=== PATIENT | male | born 1955 | race Hispanic/Latino ===

== ENCOUNTER 2019-12-04 07:40 | Observation (INO) | payer OTHER, SELFPAY ==
[2019-12-04] VITALS (14 sets, daily range): BP systolic 101–149; BP diastolic 64–94; PULSE 58–96; RESP 14–18; TEMP 36.3–37.1; O2SAT 92–96; BMI 26.1; BMI 25.3; BMI 25.4
--- NOTE | 2019-12-04 | KID_PTH ---
PATIENT: MAGDA GONGORA LOC: MS3 U#:[id number] AGE/SX: 64/M ROOM: [facility] RE12/04/[address]: Dr. Bharat Garcia MD : [id number] BED: 1 DIS: 12/05/2019 SPEC #: [id number] RECD: 12/04/19 11:45 STATUS: KEVIN DAVALOS #: [id number] NOLAN: 12/04/19 00:[address]: Bharat Garcia DEPT: SURGICAL PATHOLOGY RECD BY: Jose E Durant ENTERED: 12/05/19 10:57 SP TYPE: KIDNEY OTHR DR: No Primary Care Phys Tissues: Kidney, NOS Procedures: Surgery Specimen Level V HEADER OPERATION: Laparoscopic robotic left partial nephrectomy PRE-OP DIAGNOSIS: Left renal mass TISSUE SUBMITTED: Left renal mass MICROSCOPIC DIAGNOSIS Left renal mass, partial nephrectomy: Clear cell renal cell carcinoma, with extensive cystic changes. See cancer summary in the comment section. SJ:marilin 12/06/19 COMMENT KIDNEY CANCER SUMMARY Procedure - partial nephrectomy Specimen laterality - left Tumor site - not specified Tumor size - 3.5 x 3 x 2.2 cm Tumor focality - unifocal Histologic type - clear cell renal cell carcinoma with extensive cystic changes. Sarcomatoid features - not identified Rhabdoid features - not identified Histologic grade (WHO/ISUP) - grade 1 Tumor necrosis - not identified Tumor extension - tumor limited to kidney Margins - uninvolved by invasive carcinoma. Lymphvascular invasion - not identified Regional lymph nodes - no lymph nodes submitted or found. Non-neoplastic kidney - no pathologic change (only a thin rim of unremarkable renal parenchymal tissue is noted). PATHOLOGIC STAGE: pT1a pNx Mx The above summary is in compliance with [employer] [place] (CAP) Cancer Protocols Checklist and [place] [employer] Committee on Cancer (AJCC), Staging Manual, 8th Ed. Case has been reviewed in consultation with Dr. Davis who concurs with the above diagnosis. IDC:AM MICROSCOPIC DESCRIPTION Slides are reviewed. GROSS DESCRIPTION Received in fixative is one container labeled with the patient's name and designated left renal mass. The specimen consists of three irregular fragments of yellow fatty tissue ranging in size from 2 to 8 cm in greatest dimension. The largest fragment contains an ovoid, martin-desir, partially cystic nodule measuring 3.5 x 3.3 x 2.2 cm. This largest fragment with cystic lesion is differentially inked as follows: fatty surface furthest away from lesion - blue and opposite surface - black. The sections of cystic lesion reveal necrotic martin-yellow cut surfaces. The lesion appears to be circumscribed. Two fragments of fatty tissue in the container are grossly unremarkable and do not contain mass lesions. The lesion is sectioned and totally submitted cassettes 1-8. The smaller fragments separate in the container are sectioned and totally submitted in cassettes 9-11. / AM:marilin 12/05/19 TC:0 CPT: 15526
--- NOTE | 2019-12-04 05:47 | EKG12_ITS ---
Test Reason : PRE OP Blood Pressure : / mmHG Vent. Rate : 062 BPM Atrial Rate : 062 BPM P-R Int : 222 ms QRS Dur : 102 ms QT Int : 370 ms P-R-T Axes : 020 058 042 degrees QTc Int : 375 ms Sinus rhythm with 1st degree A-V block Otherwise normal ECG No previous ECGs available Confirmed by SHAR LOZANO, HANNAH ([id number]), metropolitan editor NILO DIAZ ([id number]) on 12/09/2019 3:40:45 PM Referred By: Bharat Garcia Confirmed By:HANNAH MYLES MD
[2019-12-04] MEDS: Lactated Ringers 1,000 ML 100 ML IV ×2 (06:17→06:18)
[2019-12-04 06:27] LABS: Hematocrit 48.1 % (40-54); Hemoglobin 16.3 g/dL (13.0-16.5); Mean Corp Hgb Conc 33.9 g/dL (32-36); Mean Corpuscular Hgb 31.1 pg (27.0-32.0); Mean Corpuscular Volume 91.8 fL (80-94); Mean Platelet Vol. 9.9 fl (6.2-12.0); Platelet Count 203 K/mm3 (150-450); RBC Distribution Width SD 40.7 fl (35.1-43.9); Red Blood Count 5.24 M/mm3 (4.6-6.2); White Blood Count 9.3 K/mm3 (4.4-11.0)
[2019-12-04 06:45] LABS: Anion Gap 6 (5-15); BUN 12 mg/dL (7-18); Calcium,Total 9.6 mg/dL (8.5-10.1); Chloride 109 mmol/L (98-107); EST Glomerular Filtration Rate 104 mL/min (>60); Est Glom Filt Rate - Afr Amer 126 mL/min (>60); Estimated Creatinine Clearance 95.74 ml/min; Glucose 112 mg/dL (74-106); Potassium 4.1 mmol/L (3.5-5.1); Sodium Level 139 mmol/L (136-145)
[2019-12-04] MEDS: Cefazolin 2 GM in 0.9% Normal Saline 100 ML IV (07:39)
--- NOTE | 2019-12-04 07:44 | PCM.HP.STD ---
Problem List (1) Left renal mass Status: Acute History of Present Illness Date of Admission: 12/04/19 Chief Complaint: Left renal mass enhancing The patient is a 64 year old male with a complex enhancing left renal mass, we discussed the potential for malignancy we can proceed with a laparoscopic robotic assisted left partial nephrectomy. Past Medical History Allergies No Known Allergies Allergy (Verified 12/04/19 06:08) Home Medications: Ambulatory Orders Medication Instructions Recorded Metoprolol Tartrate [Lopressor 25 mg PO BID 12/02/19 (Beta Naveed)] Smoking Status: Former smoker Tobacco Use: Non-smoker Review of Systems Constitutional: Denies: Chills, Fever, Weight Change HEENT: Denies: Head Aches, Sinus Congestion, Sinus Drainage Cardiovascular: Denies: Chest Pain, Palpitations Respiratory: Denies: Cough, Shortness of breath at rest, Sputum production Gastrointestinal: Denies: Abdominal Pain, Nausea, Vomiting Genitourinary: Denies: Dysuria Musculoskeletal: Denies: Joint Pain, Joint Tenderness Skin: Denies: Rash, Wounds Neurological: Denies: Numbness, Tingling, Focal weakness Psychiatric: Denies: Anxiety, Depression, Homicidal Ideations, Suicidal Ideations Hematologic/ Lymphatic: Denies: Easy Bruising, Easy Bleeding VTE Information - Inpt Only VTE Present on Admission: No VTE Mechan Device Prophylaxis: SCD's Patient Problems: Active and Suspected Problems Left renal mass (Acute) - Physical Exam Vitals/I&O's: Vital Signs Temp Pulse Resp BP Pulse Ox 98.5 F 68 16 149/94 H 96 12/04/19 06:11 12/04/19 06:11 12/04/19 06:11 12/04/19 06:11 12/04/19 06:11 Oxygen Delivery Method Room Air Weight: 80.2 kg Body Mass Index (BMI) 26.1 General: Alert, Oriented x3, Cooperative HEENT: Atraumatic, PERRLA, EOMI, Normocephalic Neck: Supple, No JVD, Negative Carotid Bruits Lungs: Clear to auscultation, Normal air movement Cardiovascular: Regular rate, No murmurs Abdomen: Bowel Sounds Present, Soft, Non Tender Extremities: No edema, Capillary Refill Less than 3 Seconds Skin: No rashes, No breakdown Musculoskeletal: No Tenderness to Palpation of Joints or Extremities Neurological: Cranial nerves II-XII grossly intact Psych/Mental Status: Normal Affect, Appropriate Laboratory Results 12/04/19 06:16: WBC 9.3, RBC 5.24, Hgb 16.3, Hct 48.1, MCV 91.8, MCH 31.1, MCHC 33.9, RDW Std Deviation 40.7, RDW Coeff of Jostin 12.0, Plt Count 203, MPV 9.9 12/04/19 06:16: Sodium 139, Potassium 4.1, Chloride 109 H, Carbon Dioxide 24.0, Anion Gap 6, BUN 12, Creatinine 0.80, Estim Creat Clear Calc 95.74, Est GFR (MDRD) Af Amer 126, Est GFR (MDRD) Non-Af 104, BUN/Creatinine Ratio 15.0, Glucose 112 H, Calcium 9.6 12/04/19 06:16: Blood Type Pending, Antibody Screen Pending, Crossmatch See Detail Current Medications Lactated Ringer's () 1,000 mls @ 100 mls/hr IV .Q10H REPLACED BY [facility] Last Admin: 12/04/19 06:17 Dose: 100 mls/hr Documented by: Lactated Ringer's () 1,000 mls @ 100 mls/hr IV .Q10H REPLACED BY [facility] Last Admin: 12/04/19 06:18 Dose: 100 mls/hr Documented by: Assessment/Plan All Active Problems Left renal mass (Acute) Plan to proceed with a left laparoscopic robotic partial nephrectomy, we discussed the risk of malignancy. Essential Procedure Criteria Procedure Essential: Yes Criteria Note: On 10/22/2019 the [facility] ([facility]) Public Order signed by [facility] Director Ashley Stapleton M.D., regarding the Management of Non-Essential Surgeries and Procedures for the purpose of preserving Personal Protective Equipment (PPE) and critical hospital capacity and resources within [place] went into effect as of 10/23/2019 at 5:00PM. According to the [facility] Public Order: This action will remain in full force and effect until the State of Emergency declared by the Governor no longer exists or the Director of the [facility] rescinds or modifies this Order.. This [facility] order stated all non-essential or elective surgeries and procedures that utilize PPE should be delayed unless there is undue risk to the current or future health of a patient. After reviewing the aforementioned [facility] Public Order and the patients clinical case, I have determined that the scheduled procedure meets the criteria to go forward. Risk to Patient if Procedure Delayed: Risk of metastasis or progression of staging if delayed
--- NOTE | 2019-12-04 07:48 | PCM.DC.URO ---
Discharge Diet: No Restrictions, Light diet - advance as tolerated Discharge Activity: Return to Normal Activity, May Not Drive - for 2 days., May not drive while taking narcotic pain medications. Additional Activity Instructions:: Please be aware that pain medications may cause nausea. You should typically eat light foods as you take your pain medication. Pain medication may cause constipation, if this is a problem for you, please discuss with your doctor. Call your doctor if your incision/area has: Continuous Slow Oozing, Sudden Increased Bleeding, Increased Pain/ Swelling, Increased Redness, Foul Smelling Discharge, Swelling at the incision site Call your doctor if you observe: Fever of 101 or Higher, Inability to urinate, Inability to have a bowel movement Suture Line Care: Avoid Pulling/Pushing, Avoid Pinching/Bending Cleanse incision/area with: Soap & Water Allergies/Adverse Reactions: Allergies No Known Allergies Allergy (Verified 12/04/19 06:08) Medications to take at Discharge Metoprolol Tartrate [Lopressor (Beta Naveed)] 25 mg PO BID 12/02/19 Docusate Sodium [Colace] 100 mg PO BID #20 cap 12/04/19 Hydrocodone/Acetaminophen [[place] 5-325 Tablet] 1 ea PO Q4H PRN PRN 5 Days #14 tab 12/04/19 The following prescriptions were given: Docusate Sodium [Colace] 100 mg PO BID #20 cap Transmission Status: Pending to [facility]/pharmacy #[id number] Hydrocodone/Acetaminophen [[place] 5-325 Tablet] 1 ea PO Q4H PRN PRN 5 Days #14 tab PRN Reason: Pain Or Fever Transmission Status: Received by [facility]/pharmacy #[id number] Primary Care Physician: Care Physician,No Primary [Primary Care Provider] - Test Results: Test results from this visit will be discussed in further detail at your follow-up appointment, if applicable. Please Follow Up With: Bharat Garcia MD When: call for follow up in 1 week
--- NOTE | 2019-12-04 10:01 | PCM.OPRPT ---
Problem List (1) Left renal mass Status: Acute Report of Operation Date of Procedure: 12/04/19 Pre-Operative Diagnosis: Left renal mass complex Post-Operative Diagnosis: Same Surgery/Procedure Performed:: Laparoscopic robotic assisted left partial nephrectomy Description of Surgical Findings:: 64-year-old male on imaging was found to have a solid cystic mass in the mid part of the kidney the mass about 3 cm in size given the risk of malignancy and the potential that is carcinoma recommended we proceed with a partial nephrectomy we talked about the risk of procedure including bleeding infection and failure to cure him of cancer if it happens to be cancer. 64-year-old male taken back to the operating room after smooth induction of general anesthesia he was placed supine on the table Burnett catheter was placed, he was then placed in lateral position with the left side up the abdomen was shaved prepped and draped in usual sterile fashion he was in left lateral position table flexed all pressure points padded his arm was at the side. Then used a lidocaine to infiltrate the skin for the camera port and the suction port insufflated the peritoneal cavity with CO2 gas placed my camera port right arm port left arm port air seal suction port and then a third port for elevating the kidney. Started with the dissection by reflecting the colon off the kidney this was done off the white line of Toldt starting from the spleen all the way to the pelvis once the colon was reflected off the kidney then identified fascia went underneath the fascia and then elevated the kidney up followed up the ureter and gonadal vessels to the hilum. We then docked the extra arm to hold up the kidney and then went to the dissection of the hilum identified the renal vein and identified the renal artery in case we need to clamp. Then the kidney was mobilized and I was able to mobilize kidney completely so they could be rotated towards me since the tumor was posterior we used a laparoscopic ultrasound to identify the tumor identify the edges. The tumor only went a few millimeters deep into the kidney so I proceeded with an off clamp resection without clamping the artery. We followed the pseudocapsule the tumor with a brought attack working all the way back and forth until we got into the plane between the pseudocapsule and the renal parenchyma as we dissected underneath the tumor then I elevated the tumor off the bed of the kidney and the tumor was completely resected off using meticulous dissection very minimal cautery and following the avascular plane between the pseudocapsule the tumor in the renal parenchyma tumor was then placed in Endo Catch bag and used a stitch V lock stitch 302 run the base of the tumor resection site and ran the base of resection site with a V lock stitch to control at 1 small arterial bleeder. Once this was controlled then we placed FloSeal on the base of the resection site and Surgicel on top of that and then we placed 2 sliding bolster stitches on top of the Surgicel to place pressure on the resection site we looked at the resection site and there was no bleeding after this was done. We then extracted the tumor through 1 of the air seal ports this was closed with 0 Vicryl in a [id number] fashion we then closed our camera port with a Carlos Ricardo stitch with 0 Vicryl. Then we inspected the kidney after this was done there was no pneumoperitoneum for about 1050 minutes there is no sign of bleeding from the kidney we then extracted all the ports closed all the incisions with subcuticular stitches minimal blood loss during the case by less than 50 cc complete resection of the tumor sent off for permanent resection and the patient anesthetic is being reversed. Type of Anesthesia:: General Drains: burnett Estimated Blood Loss (mL): 50 - Admit VTE Documentation VTE Present on Admission: No
[2019-12-04] MEDS: Bupivacaine Mpf 0.5% 30 ML VIAL (10:10)
[2019-12-04] MEDS: 0.45% Normal Saline 1,000 ML 75 ML IV ×2 (12:15→23:37)
[2019-12-04 13:29] LABS: Hemoglobin 14.9 g/dL (13.0-16.5); Mean Corp Hgb Conc 32.4 g/dL (32-36); Mean Corpuscular Hgb 30.9 pg (27.0-32.0); Mean Corpuscular Volume 95.4 fL (80-94); Mean Platelet Vol. 9.6 fl (6.2-12.0); Platelet Count 186 K/mm3 (150-450); RBC Distribution Width SD 42.1 fl (35.1-43.9); Red Blood Count 4.82 M/mm3 (4.6-6.2); White Blood Count 15.1 K/mm3 (4.4-11.0)
[2019-12-04 13:39] LABS: Anion Gap 6 (5-15); BUN 13 mg/dL (7-18); Calcium,Total 9.1 mg/dL (8.5-10.1); Chloride 109 mmol/L (98-107); Creatinine, Serum 0.87 mg/dL (0.70-1.30); EST Glomerular Filtration Rate 94 mL/min (>60); Est Glom Filt Rate - Afr Amer 114 mL/min (>60); Glucose 125 mg/dL (74-106); Potassium 4.2 mmol/L (3.5-5.1); Sodium Level 139 mmol/L (136-145)
[2019-12-04] MEDS: Pantoprazole Sodium 20 MG Tablet PO (14:40)
[2019-12-04] MEDS: Docusate Sodium 100 MG Capsule 200 MG PO ×2 (14:40→23:35)
[2019-12-04] MEDS: oxyCODONE 5 MG Tablet PO ×2 (14:40→20:35)
[2019-12-04] MEDS: Metoprolol Tartrate 25 MG Tablet PO (23:34)
[2019-12-04] MEDS: Acetaminophen 500 MG Tablet PO (23:40)
[2019-12-05] VITALS: BP 131/84; PULSE 95; RESP 18; TEMP 36.9; O2SAT 92
[2019-12-05] MEDS: oxyCODONE 5 MG Tablet PO (03:55)
[2019-12-05] MEDS: Ketorolac 15 MG/ML Vial IV (03:55)
[2019-12-05 04:00] VITALS: BP 122/82; PULSE 75; RESP 18; TEMP 37; O2SAT 93
[2019-12-05] MEDS: 0.9% Saline Lock 10 ML Syringe IV (04:01)
[2019-12-05 04:06] VITALS: BMI 25.4
[2019-12-05 06:40] LABS: Hematocrit 42.3 % (40-54); Hemoglobin 14.1 g/dL (13.0-16.5); Mean Corp Hgb Conc 33.3 g/dL (32-36); Mean Corpuscular Hgb 30.9 pg (27.0-32.0); Mean Corpuscular Volume 92.8 fL (80-94); Platelet Count 201 K/mm3 (150-450); RBC Distribution Width CV 12.1 % (11.6-14.6); RBC Distribution Width SD 41.4 fl (35.1-43.9); Red Blood Count 4.56 M/mm3 (4.6-6.2); White Blood Count 11.1 K/mm3 (4.4-11.0)
[2019-12-05 07:00] LABS: Anion Gap 5 (5-15); BUN 12 mg/dL (7-18); BUN/Creat Ratio 12.8 RATIO (10-20); Calcium,Total 9.4 mg/dL (8.5-10.1); Chloride 106 mmol/L (98-107); Creatinine, Serum 0.94 mg/dL (0.70-1.30); EST Glomerular Filtration Rate 86 mL/min (>60); Est Glom Filt Rate - Afr Amer 104 mL/min (>60); Estimated Creatinine Clearance 84.13 ml/min; Glucose 116 mg/dL (74-106); Potassium 4.1 mmol/L (3.5-5.1); Sodium Level 137 mmol/L (136-145)
--- NOTE | 2019-12-05 07:33 | PCM.DC.SUM ---
Discharge Date and Diagnosis - Problem List Patient Problems: Active and Suspected Problems Left renal mass (Acute) Date of Admission: 12/04/19 Date of Discharge: 12/05/19 - Primary Discharge Diagnosis Active and Suspected Problems Left renal mass (Acute) Hospital Course and Treatment Operations: - - left robotic partial nephrectomy Procedures: None Summary of Care Provided: The patient is a 64 year old male with renal mass. s/p partial nephrectomy doing well, home today on reg diet. Patient Problems: Active and Suspected Problems Left renal mass (Acute) - Physical Exam Vitals/I&O's: Vital Signs Temp Pulse Resp BP Pulse Ox 98.6 F 75 18 122/82 H 93 12/05/19 04:00 12/05/19 04:00 12/05/19 04:00 12/05/19 04:00 12/05/19 04:00 Oxygen Flow Rate (L/min) 2 Oxygen Delivery Method Room Air Weight: 80.2 kg Body Mass Index (BMI) 25.3 Intake and Output for Last 24 Hours 12/03/19 12/04/19 12/05/19 23:59 23:59 23:59 Intake Total 3257.5 / 3257.5 600 / 600 Output Total 1900 / 1900 650 / 650 Balance 1357.5 / 1357.5 -50 / -50 General: Alert, Oriented x3, Cooperative HEENT: Atraumatic, PERRLA, EOMI, Normocephalic Neck: Supple, No JVD, Negative Carotid Bruits Lungs: Clear to auscultation, Normal air movement Cardiovascular: Regular rate, No murmurs Abdomen: Bowel Sounds Present, Soft, Non Tender Extremities: No edema, Capillary Refill Less than 3 Seconds Skin: No rashes, No breakdown Musculoskeletal: No Tenderness to Palpation of Joints or Extremities Neurological: Cranial nerves II-XII grossly intact Psych/Mental Status: Normal Affect, Appropriate Laboratory Results 12/04/19 06:16: Blood Type O POSITIVE, Antibody Screen NEGATIVE, Crossmatch See Detail 12/04/19 13:15: WBC 15.1 H, RBC 4.82, Hgb 14.9, Hct 46.0, MCV 95.4 H, MCH 30.9, MCHC 32.4, RDW Std Deviation 42.1, RDW Coeff of Jostin 12.0, Plt Count 186, MPV 9.6 12/04/19 13:15: Sodium 139, Potassium 4.2, Chloride 109 H, Carbon Dioxide 24.0, Anion Gap 6, BUN 13, Creatinine 0.87, Estim Creat Clear Calc 90.90, Est GFR (MDRD) Af Amer 114, Est GFR (MDRD) Non-Af 94, BUN/Creatinine Ratio 15.0, Glucose 125 H, Calcium 9.1 12/05/19 06:10: WBC 11.1 H, RBC 4.56 L, Hgb 14.1, Hct 42.3, MCV 92.8, MCH 30.9, MCHC 33.3, RDW Std Deviation 41.4, RDW Coeff of Jostin 12.1, Plt Count 201, MPV 10.0 12/05/19 06:10: Sodium 137, Potassium 4.1, Chloride 106, Carbon Dioxide 26.0, Anion Gap 5, BUN 12, Creatinine 0.94, Estim Creat Clear Calc 84.13, Est GFR (MDRD) Af Amer 104, Est GFR (MDRD) Non-Af 86, BUN/Creatinine Ratio 12.8, Glucose 116 H, Calcium 9.4 Current Medications Acetaminophen (Tylenol) 500 mg PO Q4H PRN PRN PRN Reason: Pain Score 1-10/10 /Headache Last Admin: 12/04/19 23:40 Dose: 500 mg Documented by: Docusate Sodium (Colace) 200 mg PO BID [facility] Last Admin: 12/04/19 23:35 Dose: 200 mg Documented by: Sodium Chloride () 1,000 mls @ 75 mls/hr IV .[id number] [facility] Last Admin: 12/04/19 23:37 Dose: 75 mls/hr Documented by: Ketorolac Tromethamine (Toradol (Bkc)) 15 mg IV Q6H PRN PRN PRN Reason: Pain or Fever Stop: 12/09/19 07:41 Last Admin: 12/05/19 03:55 Dose: 15 mg Documented by: Magnesium Hydroxide (Milk Of Magnesia) 15 ml PO DAILY [facility] Last Admin: 12/04/19 14:32 Dose: Not Given Documented by: Metoprolol Tartrate (Lopressor (Beta Naveed)) 25 mg PO BID [facility] Last Admin: 12/04/19 23:34 Dose: 25 mg Documented by: Ondansetron HCl (Zofran) 4 mg IV Q6H PRN PRN PRN Reason: Nausea Oxycodone HCl (Oxyir) 5 mg PO Q4H PRN PRN PRN Reason: Pain Score 1-10/10 Last Admin: 12/05/19 03:55 Dose: 5 mg Documented by: Pantoprazole Sodium (Protonix) 20 mg PO DAILY [facility] Last Admin: 12/04/19 14:40 Dose: 20 mg Documented by: Sodium Chloride () 10 - 40 ml IV UD PRN PRN Reason: SALINE FLUSH Last Admin: 12/05/19 04:01 Dose: 10 ml Documented by: Discharge Diet: No Restrictions, Light diet - advance as tolerated Discharge Activity: Return to Normal Activity, May Not Drive - for 2 days., May not drive while taking narcotic pain medications. Additional Activity Instructions:: Please be aware that pain medications may cause nausea. You should typically eat light foods as you take your pain medication. Pain medication may cause constipation, if this is a problem for you, please discuss with your doctor. Call your doctor if your incision/area has: Continuous Slow Oozing, Sudden Increased Bleeding, Increased Pain/ Swelling, Increased Redness, Foul Smelling Discharge, Swelling at the incision site Call your doctor if you observe: Fever of 101 or Higher, Inability to urinate, Inability to have a bowel movement Suture Line Care: Avoid Pulling/Pushing, Avoid Pinching/Bending Cleanse incision/area with: Soap & Water Home Medications: Medications to take at Discharge Metoprolol Tartrate [Lopressor (Beta Naveed)] 25 mg PO BID 12/02/19 Docusate Sodium [Colace] 100 mg PO BID #20 cap 12/04/19 Hydrocodone/Acetaminophen [[place] 5-325 Tablet] 1 ea PO Q4H PRN PRN 5 Days #14 tab 12/04/19 Following Prescrptions Were Given to Patient: Docusate Sodium [Colace] 100 mg PO BID #20 cap Transmission Status: Received by [facility]/pharmacy #[id number] Hydrocodone/Acetaminophen [[place] 5-325 Tablet] 1 ea PO Q4H PRN PRN 5 Days #14 tab PRN Reason: Pain Or Fever Transmission Status: Received by [facility]/pharmacy #[id number] Primary Care Physician: Care Physician,No Primary [Primary Care Provider] - Please Follow Up With: Bharat Garcia MD When: call for follow up in 1 week Medical Necessity - Tobacco Use Smoking Status: Former smoker Tobacco Use: Non-smoker Meaningful Use Info Meaningful Use Diagnoses (Choose all that apply): None applicable
[2019-12-05 08:00] VITALS: BP 118/73; PULSE 83; RESP 18; TEMP 36.7; O2SAT 93
[2019-12-05 10:28] VITALS: PULSE 75
[2019-12-05] MEDS: Metoprolol Tartrate 25 MG Tablet PO (10:28)
[2019-12-05] MEDS: Docusate Sodium 100 MG Capsule 200 MG PO (10:28)
[2019-12-05] MEDS: Magnesium Hydroxide 30 ML UDC 15 ML PO (10:28)
[2019-12-05] MEDS: Pantoprazole Sodium 20 MG Tablet PO (10:28)
[2019-12-05 11:00] VITALS: BP 115/68; PULSE 72; RESP 18; TEMP 36.7; O2SAT 95
== END 2019-12-05 11:15 | disposition home or self-care (01) ==
LOC: MS3 11:09 → SDC 12:36 → MS3 12:36
PROVIDERS: Admitting Provider Urology; Referring Provider Urology; Visit Provider Urology
PROC: (CPT 50543; principal; 2019-12-04 07:10)
DX: C64.2 Malignant neoplasm of left kidney, except renal pelvis (principal); I10 Essential (primary) hypertension; Z79.899 Other long term (current) drug therapy; Z87.891 Personal history of nicotine dependence
CPT/HCPCS: 00862; 50543; S2900; 36415; 80048; 85027; 86850; 86900; 86901; 86920; 86922; 88307; 93005; 96361; 96374; 99218; J7120; A4216; G0378; G0379; J2405

== ENCOUNTER 2019-12-07 09:31 | Emergency (ER) | payer OTHER, SELFPAY ==
[2019-12-04 12:29] VITALS: BMI 25.3
[2019-12-07 09:32] VITALS: BP 156/111; PULSE 106; RESP 16; TEMP 36.4; O2SAT 94; BMI 25.4
--- NOTE | 2019-12-07 09:43 | ED.DCSUM_ITS ---
History of Present Illness Chief Complaint: Complaint Detail of Chief Complaint: Unable to urinate or have bowel movement Informant: Patient Onset: Today Narrative: Patient underwent robotic partial nephrectomy 3 days ago secondary to a renal mass. Patient states that he was able to urinate yesterday but today is only been able to pass small dribbles of urine. He has had problems after anesthesia in the past. Patient also states he feels constipated and is not able to pass any stool. He is currently on [place] but states he is taking a stool softener as well. - Past Medical History (1) Left renal mass Status: Chronic Past Medical History - Allergies and Home Meds Allergies/Adverse Reactions: Allergies No Known Allergies Allergy (Verified 12/04/19 06:08) Primary Care Physician: Care Physician,No Primary [Primary Care Provider] - Prior records reviewed: Yes Smoking Status: Former smoker Review of Systems General: Denies: Chills, Fever Eyes: Denies: Visual changes - bilaterally ENT: Denies: Bilateral ear pain Cardiovascular: Denies: Chest pain Respiratory: Denies: Dyspnea, Cough Gastrointestinal: Reports: Abdominal pain, Constipation. Denies: Nausea, Vomiting, Diarrhea Genitourinary: Reports: - - Difficulty passing urine Neurological: Denies: Headache Hematologic: Denies: Easy bruising, Easy bleeding Allergy: Denies: Uticaria Physical Exam Vital Signs/Narrative: Vital Signs Temp Pulse Resp BP Pulse Ox 12/07/19 09:32 97.6 F L 106 H 16 156/111 H 94 Inital Vital Signs reviewed: Yes General: Well nourished, Well developed ENT: Moist mucous membranes Neck: Supple Cardiovascular: Regular rate, Regular rhythm Respiratory: No distress, CTA bilaterally Abdomen: Soft, Normal bowel sounds, - - Patient has multiple dressed wounds to the left abdomen from his recent surgery. He has appropriate mild postop tenderness. Bladder does feel distended. Extremities: Nontender Skin: Normal color Neurological: Alert, Oriented x3 Psychological: Normal affect Diagnostic/Tx/Re-eval Impressions KUB X-Ray 12/07/19 10:03 IMPRESSION: No bowel obstruction or significant fecal retention. Subcutaneous emphysema of the left lateral abdominal wall, of questionable etiology. Further evaluation is required if clinically indicated. Electronically Signed: Kraig Alaniz DO at 10:39 EDT Tel [phone], Service support , ADDENDUM: 12/07/19 1054 IMPRESSION: No bowel obstruction or significant fecal retention. Subcutaneous emphysema of the left lateral abdominal wall, of questionable etiology. Further evaluation is required if clinically indicated. N.B. : The above information has been verbally conveyed by Kraig Alaniz DO to Tana Ibarra MD, on 12/07/2019 10:47:04 (ET). Electronically Signed: Kraig Alaniz DO at 10:39 EDT Tel [phone], Service support , Abdomen/Pelvis CT 12/07/19 10:35 IMPRESSION: Mild perinephric stranding and free air posterior to the left kidney likely related to the recent surgery. Free air in the abdomen. Subcutaneous emphysema of the left lateral abdominal wall. These are likely postsurgically related. Mild fatty density in the inguinal canals. Trace left pleural effusion. Hiatal hernia with possible volvulus of the stomach. No sign of gastric outlet obstruction. Electronically Signed: Kraig Alaniz DO at 13:14 EDT Tel [phone], Service support , 12/07/19 10:03 Abdomen Single View [RAD] Stat 12/07/19 10:35 Abdomen/Pelvis WITH Contrast [CT] Stat Laboratory Results 12/07/19 12/07/19 12/07/19 09:55 10:45 10:45 WBC 10.4 RBC 4.49 L Hgb 14.1 Hct 42.0 MCV 93.5 MCH 31.4 MCHC 33.6 RDW Std Deviation 41.5 RDW Coeff of [place]ost[place] 12.1 Plt Count 181 MPV 9.8 Immature Gran % (Auto) 0.700 Neut % (Auto) 76.1 H Lymph % (Auto) 12.5 L [place] % (Auto) 8.7 Eos % (Auto) 1.6 Baso % (Auto) 0.4 Absolute Neuts (auto) 7.9 H Absolute Lymphs (auto) 1.29 Nucleated RBC % 0 Sodium 136 Potassium 3.8 Chloride 106 Carbon Dioxide 24.0 Anion Gap 6 BUN 12 Creatinine 0.64 L Estim Creat Clear Calc 123.57 Est GFR (MDRD) Af Amer 163 Est GFR (MDRD) Non-Af 134 BUN/Creatinine Ratio 18.8 Glucose 105 Calcium 9.6 Urine Color Yellow Urine Clarity Sl. Cloudy Urine pH 7.0 Ur Specific [place] 1.010 Urine Protein 30 H Urine Glucose (UA) Normal Urine Ketones 150 H Urine Occult Blood 150 H Urine Nitrite Negative Urine Bilirubin Negative Urine Urobilinogen Normal Ur Leukocyte Esterase 25 H Urine RBC 10-25 SEEN Urine WBC 0-5 SEEN Ur Squamous Epith Cells 0-5 SEEN Urine Bacteria 1+ Urine Mucus 0 SEEN - Medical Decision Making [place] catheter was placed shortly after patient arrived. 400 cc of urine was drained. Patient still had the urge to have a bowel movement after bladder was decompressed. Abdominal x-ray was obtained that does show significant air throughout the colon and I was initially concerned for possible ileus. Radiologist did call about free air in the abdomen not realizing the patient had read recently had surgery. Lab work was obtained and unremarkable. CT of the abdomen and pelvis shows air throughout the colon but no significant fecal impaction. There is no evidence of obstruction. They do comment on a hiatal hernia with possible volvulus of the stomach. There is no evidence of outlet obstruction. Patient has no epigastric pain. Patient was discussed with Dr. Garcia. Patient is to leave the [place] catheter in place and he will be given glycerin suppositories to help him pass air. Dr. Garcia will see him in the office next week. ED Disposition - Plan for ED Patient: Disposition: Home or Assisted Living Diagnosis: Postoperative abdominal pain Instructions: ED Urinary Retention Male, ED [place] Catheter Care Prescriptions: Glycerin [Laxative Suppository] 1 ea ND BID PRN PRN #8 supp.rect PRN Reason: Constipation Transmission Status: Pending to [facility]/pharmacy #[id number] Referrals: Bharat Garcia MD [STAFF PHYSICIAN] - 3-5 Days
[2019-12-07 10:00] LABS: Mucous, Urine 0 SEEN /hpf (<or=2+)
--- NOTE | 2019-12-07 10:03 | RAD_ITS ---
We are attempting to reach an attending provider to discuss findings. An addendum with communication details will be sent when the communication is complete. STUDY: X-RAY - ABDOMEN/PELVIS REASON FOR EXAM: Male, 64 years old. CONSTIPATION TECHNIQUE: 2 views COMPARISON: None. FINDINGS: There is an unremarkable bowel gas pattern. There is no demonstrated free abdominal air. There is subcutaneous edema of the left lateral abdominal wall, of questionable etiology. Normal soft tissue structures. Mild degenerative vertebral changes. RAD/Abdomen Single View IMPRESSION: No bowel obstruction or significant fecal retention. Subcutaneous emphysema of the left lateral abdominal wall, of questionable etiology. Further evaluation is required if clinically indicated. Electronically Signed: Kraig Alaniz DO at 10:39 EDT Tel [phone], Service support ,
[2019-12-07 10:14] LABS: Color, Urine Yellow (Yellow); Glucose, Dipstick Normal (Normal); Leukocyte Esterase-Dipstick 25 /ul (Negative); Nitrite-Dipstick Negative (Negative); Occult Blood-Urine 150 /ul (Negative); Protein-Dipstick 30 mg/dl (Negative); Urine Bilirubin Dipstick Negative (Negative); Urine Clarity Sl. Cloudy (Clear); Urine Urobilinogen Normal (Normal)
[2019-12-07 10:24] LABS: Ketone-Dipstick 150 mg/dl (Negative)
[2019-12-07 10:26] LABS: Bacteria 1+ /hpf (None Seen); Red Blood Cells-Urine 10-25 SEEN /hpf (0-5); Squamous Epithelial Cells - UA 0-5 SEEN /hpf (0-5); White Blood Cells 0-5 SEEN /hpf (0-5)
--- NOTE | 2019-12-07 10:35 | CT_ITS ---
STUDY: CT ABDOMEN AND PELVIS WITH CONTRAST REASON FOR EXAM: Male, 64 years old. TUMOR REMOVED 3 DAYS AGO OPN LEFT KIDNEY, UNABLE TO URINATE X 1 DAY RADIATION DOSAGE (If Supplied By Facility): CTDIvol = ( 13.15 ) mGy, DLP = ( 771.83 ) mGycm TECHNIQUE: Transaxial images were obtained from the dome of the diaphragm to the symphysis pubis without oral contrast. Oral and amp; IV Gastrografin and amp; 100mL Isovue-300 was administered. Sagittal and coronal images were reconstructed. Individualized dose optimization techniques were used for this CT. COMPARISON: None. FINDINGS: Trace left pleural effusion. The visualized portions of the heart are within normal limits. Normal liver. Normal gallbladder and extrahepatic biliary system. Normal spleen. Normal pancreas. Normal bilateral adrenal glands. Normal right kidney. Mild perinephric stranding and free air posterior to the left kidney likely related to the recent surgery. 8mm left renal cyst. Hiatal hernia with possible volvulus of the stomach. No sign of gastrointestinal obstruction. Normal small intestine. Normal colon. The appendix is visualized and appears normal. Normal abdominal aorta. 1 cm splenic artery aneurysm. Normal inferior vena cava. Normal retroperitoneum. There is pneumoperitoneum. [place] catheter in the urinary bladder. Fatty density at the inguinal canals. Relatively extensive subcutaneous emphysema of the left lateral abdominal wall. Normal osseous structures. CT/Abdomen/Pelvis WITH Contrast IMPRESSION: Mild perinephric stranding and free air posterior to the left kidney likely related to the recent surgery. Free air in the abdomen. Subcutaneous emphysema of the left lateral abdominal wall. These are likely postsurgically related. Mild fatty density in the inguinal canals. Trace left pleural effusion. Hiatal hernia with possible volvulus of the stomach. No sign of gastric outlet obstruction. Electronically Signed: Kraig Alaniz DO at 13:14 EDT Tel [phone], Service support ,
[2019-12-07 10:52] LABS: Absolute Lymphocyte Count 1.29 X10^3/uL (0.83-4.51); Absolute Neutrophil Count 7.9 X10^3/uL (2.0-7.7); Basophil# 0.04 X10^3/uL; Basophil% 0.4 % (0-1); Eosinophil# 0.17 X10^3/uL; Eosinophils% 1.6 % (0-5); Hemoglobin 14.1 g/dL (13.0-16.5); Lymphocyte # 1.29 X10^3/ul (4.0); Lymphocyte % 12.5 % (19-41); Mean Corp Hgb Conc 33.6 g/dL (32-36); Mean Corpuscular Hgb 31.4 pg (27.0-32.0); Mean Corpuscular Volume 93.5 fL (80-94); Mean Platelet Vol. 9.8 fl (6.2-12.0); Monocyte% 8.7 % (0-10); NRBC Flagged by Analyzer 0 % (0-5); Neutrophil # 7.88 X10^3/uL (2.7-7.7); Neutrophil % 76.1 % (47-70); Platelet Count 181 K/mm3 (150-450); RBC Distribution Width CV 12.1 % (11.6-14.6); RBC Distribution Width SD 41.5 fl (35.1-43.9); Red Blood Count 4.49 M/mm3 (4.6-6.2); White Blood Count 10.4 K/mm3 (4.4-11.0)
[2019-12-07 11:05] LABS: Anion Gap 6 (5-15); BUN 12 mg/dL (7-18); BUN/Creat Ratio 18.8 RATIO (10-20); Calcium,Total 9.6 mg/dL (8.5-10.1); Chloride 106 mmol/L (98-107); Creatinine, Serum 0.64 mg/dL (0.70-1.30); EST Glomerular Filtration Rate 134 mL/min (>60); Est Glom Filt Rate - Afr Amer 163 mL/min (>60); Estimated Creatinine Clearance 123.57 ml/min; Glucose 105 mg/dL (74-106); Potassium 3.8 mmol/L (3.5-5.1); Sodium Level 136 mmol/L (136-145)
[2019-12-07 14:43] VITALS: BP 133/96; RESP 18; O2SAT 98
== END 2019-12-07 14:45 | disposition home or self-care (01) ==
PROVIDERS: Emergency Provider Emergency Medicine
DX: R10.9 Unspecified abdominal pain (principal); G89.18 Other acute postprocedural pain; Z90.5 Acquired absence of kidney; Z87.891 Personal history of nicotine dependence
CPT/HCPCS: 51702; 74018; 74177; 80048; 81001; 85025; 99284; Q9967; A4216